=== PATIENT | male | born 1970 | race Caucasian/White ===

== ENCOUNTER 2018-06-13 10:04 | Emergency (ER) | payer SELFPAY ==
[2018-06-13] MEDS ORDERED: Triple Antibiotic Oint 1 GM Packet ONE (10:38)
[2018-06-13] MEDS ORDERED: Ketorolac Tromethamine 60 MG/2 ML VIAL ONE (10:38)
--- NOTE | 2018-06-13 12:21 | RAD ---
RIGHT TIBIA FIBULA 2 VIEWS: INDICATION: Injury with pain to the right lower extremity. FINDINGS: There is a transverse displaced fracture involving the distal diaphysis of the fibula. Distal fragme nt shows lateral displacement of approximately shaft width. The AP view shows evidence of avulsion of the tibial spine at the knee joint. This may represent an old injury. IMPRESSION: 1. Evidence of acute mildly displaced fracture of the distal fibula. 2. Avulsion of the tibial spine, age indeterminate. POS: [facility]
== END 2018-06-13 11:05 | disposition home or self-care (01) ==
LOC: MADERS 10:04
DX: S82.831A Other fracture of upper and lower end of right fibula, initial encounter for closed fracture (principal); F17.210 Nicotine dependence, cigarettes, uncomplicated; W23.0XXA Caught, crushed, jammed, or pinched between moving objects, initial encounter
CPT/HCPCS: 96372; J1885